=== PATIENT | female | born 1955 | race African-American/Black ===

== ENCOUNTER 2019-02-26 16:43 | Emergency (ER) | payer MEDICAID ==
[~2019-02-26] VITALS: Ht 170.2 cm; Wt 64.0 kg
[2019-02-26 18:19] LABS: BASOPHILS % 0.5 % (0.0-2.0); EOSINOPHILS % 1.8 % (0.0-5.0); HEMATOCRIT. 31.5 % (36.0-48.0); HEMOGLOBIN. 10.3 g/dL (12.0-16.0); LYMPHOCYTES % 21.8 % (20.0-50.0); MEAN CORPUSCULAR HEMOGLOBIN 26.6 pg (28.0-32.0); MEAN CORPUSCULAR VOLUME 81.1 fL (81.0-99.0); MEAN PLATELET VOLUME 7.5 fl (7.4-10.4); NEUTROPHILS % 66.9 % (40.0-76.0); PLATELET 270 x1000/uL (130-400); RED BLOOD CELL COUNT 3.88 mill/uL (4.2-5.4); RED CELL DISTRIBUTION WIDTH 14.2 % (11.6-14.6)
[2019-02-26 18:21] LABS: CHLORIDE 109 mEq/L (98-107)
[2019-02-26 18:25] LABS: ETHANOL BLOOD < 10 mg/dL
[2019-02-27 10:30] VITALS: BP 135/82
== END 2019-02-27 10:55 | disposition home or self-care (01) ==
LOC: ER 16:43
DX: Z76.89 Persons encountering health services in other specified circumstances (principal); Z59.0 Homelessness; F03.90 Unspecified dementia, unspecified severity, without behavioral disturbance, psychotic disturbance, mood disturbance, and anxiety
CPT/HCPCS: 36415; 80307; 80320; 80329; 93005; 99284; G0480

== ENCOUNTER 2019-05-26 22:49 | Emergency (ER) | payer MEDICAID | END 2019-05-27 00:10 | disposition left against medical advice (07) | LOC: ER 22:49 | DX: Z53.21 Procedure and treatment not carried out due to patient leaving prior to being seen by health care provider (principal) ==